=== PATIENT | male | born 1975 | race Caucasian/White ===

== ENCOUNTER 2020-04-30 09:07 | Day surgery (SDC) | payer OTHER ==
[~2020-04-30] VITALS: Ht 182.9 cm; Wt 135.6 kg
[~2020-04-30 09:07] MED LIST: ACEASPCAF; ACEASPCAF PO; ACEBUTCAFT PO; AMLO10 PO; AMLODIPINE-OLM1 EAC2 PO; AMOCLA500 PO; AMOCLA875 PO; AMOX500 PO; AZIT250 PO; BECL25NI; CLAR500 PO; CRUTCH3 USE; DICL.1SO OD; FAMO20 PO; FISH OIL 1,2001 EAC7 PO; FROV2.5 PO; HYDACE10B PO; HYDACE5 PO; HYDMOR2 PO; HYOS.125 SL; IBUP200 PO; IBUP800 PO; ISODICACE PO; KETO10 PO; LORA1 PO; MULVITA PO; NAPR220 PO; NAPR500 PO; NAPR550 PO; NEBI10 PO; OMEP40CA12 PO; OXYACE5T; OXYACE5T PO; OXYACE7.5T PO; OXYC5 PO; PARO10 PO; PARO20; PARO20 PO; PENVK500 PO; PROM25 PO; RXHYDACE PO; RXLORA1 PO; RXNAPNA550 PO; RXOXYACE PO; RXPROM25 PO; SUMA25 PO; TOBR.3OPSO OP; Ultram50 MG PO
[2020-04-30] MEDS ORDERED: SILD25T (13:34)
[2020-04-30] MEDS ORDERED: EUCRISA60 GM (13:34)
== END 2020-04-30 10:45 | disposition home or self-care (01) ==
LOC: ORSCSDS 09:07
PROVIDERS: Internal Medicine Gastroenterology
PROC: 0DBN8ZX Excision of Sigmoid Colon, Via Natural or Artificial Opening Endoscopic, Diagnostic (ICD-10-PCS; principal; 2020-04-30 10:30)
PROC: 0DBL8ZX Excision of Transverse Colon, Via Natural or Artificial Opening Endoscopic, Diagnostic (ICD-10-PCS; principal; 2020-04-30 10:30)
DX: K62.5 Hemorrhage of anus and rectum (principal); D12.3 Benign neoplasm of transverse colon; K63.5 Polyp of colon; K64.8 Other hemorrhoids; I10 Essential (primary) hypertension; E66.01 Morbid (severe) obesity due to excess calories; Z68.41 Body mass index [BMI] 40.0-44.9, adult
CPT/HCPCS: 88305; J2704; J7120

== ENCOUNTER → 2022-06-06 | Outpatient (CLI) | payer OTHER ==
[~2022-06-06] MED LIST changes: +EUCRISA60 GM; +SILD25T
== END | disposition home or self-care (01) ==
LOC: LAB SHORT 16:32 → LAB 16:32
DX: Z30.2 Encounter for sterilization (principal)

== ENCOUNTER → 2022-10-14 | Outpatient (CLI) | payer OTHER ==
[2022-10-14 18:54] LABS: BASOPHILS ABSOLUTE AUTO 0.04 K/mm3 (0.00-0.23); BASOPHILS PERCENT AUTO 0 % (0-2); EOSINOPHILS ABSOLUTE AUTO 0.02 K/mm3 (0.00-0.68); EOSINOPHILS PERCENT AUTO 0 % (0-6); Hematocrit 44.7 % (37.0-53.0); IMMATURE GRAN ABSOLUTE AUTO 0.02 K/mm3 (0.00-0.10); IMMATURE GRAN PERCENT AUTO 0 % (0-1); LYMPHOCYTES ABSOLUTE AUTO 2.66 K/mm3 (0.84-5.20); LYMPHOCYTES PERCENT AUTO 25 % (21-46); MONOCYTES ABSOLUTE AUTO 0.73 K/mm3 (0.16-1.47); MONOCYTES PERCENT AUTO 7 % (4-13); Mean Corpuscular HGB 28.7 pg (26.0-34.0); Mean Corpuscular HGB Conc 33.6 g/dL (31.5-36.5); Mean Corpuscular Volume 86 fL (80-100); Mean Platelet Volume 9.7 fL (9.1-12.4); NEUTROPHILS ABSOLUTE AUTO 7.05 K/mm3 (1.96-9.15); NEUTROPHILS PERCENT AUTO 67 % (41-73); Platelet Count 258 K/mm3 (150-400); RDW Coefficient Variation 13.4 % (11.7-14.2); RDW Standard Deviation 41.9 fL (35.1-46.3); Red Blood Cell Count 5.23 M/mm3 (4.30-5.90); White Blood Cell Count 10.52 K/mm3 (4.00-11.30)
[2022-10-14 19:11] LABS: Albumin, Blood 3.8 g/dL (3.4-5.0); Albumin/Globulin Ratio 1.1 (0.8-1.8); Bilirubin, Total 0.7 mg/dL (0.1-1.0); Bun/Creatinine Ratio 14.2 (12.0-20.0); Calcium, Blood 8.8 mg/dL (8.5-10.1); Creatinine, Blood 1.13 mg/dL (0.60-1.20); Globulin, Blood 3.4 g/dL (2.2-4.0); Magnesium, Blood 2.5 mg/dL (1.6-2.4); Potassium, Blood 3.5 mmol/L (3.5-5.5); Thyroid Stimulating Hormone 0.986 uIU/mL (0.360-4.800); Total Protein, Blood 7.2 g/dL (6.4-8.2)
== END | disposition home or self-care (01) ==
LOC: LAB 18:49 → LAB SHORT 18:49
PROVIDERS: Family Medicine
DX: R00.2 Palpitations (principal)
CPT/HCPCS: 80053; 83735; 84443; 85025